=== PATIENT | female | born 1990 | race Caucasian/White ===

== ENCOUNTER 2017-04-21 22:05 | Emergency (ER) | payer SELFPAY ==
[~2017-04-21] VITALS: Ht 162.6 cm; Wt 68.6 kg
[2017-04-21] MEDS ORDERED: CIPRO HC OTIC S10 ML BOTH EARS (22:54)
[2017-04-21] MEDS ORDERED: SUDAFED PE PRE1 EAC1 PO (22:54)
[2017-04-21] MEDS ORDERED: AZITHROMYCIN250 MG PO (22:54)
[2017-04-21 23:06] VITALS: BP 116/78
== END 2017-04-21 23:07 | disposition home or self-care (01) ==
LOC: EME 22:05
DX: H66.93 Otitis media, unspecified, bilateral (principal); Z88.0 Allergy status to penicillin; Z88.2 Allergy status to sulfonamides
CPT/HCPCS: 99281; 99283